=== PATIENT | male | born 1985 | race Two or more races ===

== ENCOUNTER 2020-05-28 17:14 | Emergency (ER) | payer SELFPAY ==
[~2020-05-28] VITALS: Ht 172.7 cm; Wt 75.3 kg
[2020-05-28 17:40] VITALS: BP 132/72
[2020-05-28] MEDS ORDERED: NAPR-1164 PO (18:25)
== END 2020-05-28 19:02 | disposition home or self-care (01) ==
LOC: ER 17:21
DX: R51.9 Headache, unspecified (principal); R09.81 Nasal congestion; Z79.899 Other long term (current) drug therapy
CPT/HCPCS: 70450-TC; 70486-TC